=== PATIENT | female | born 1965 | race Caucasian/White ===

== ENCOUNTER → 2016-08-23 | Outpatient (CLI) | payer BC ==
[~2016-08-23] MED LIST: ASCO120P2 PO; BIOT1CAP3 PO; CA C1TAB89 PO; CHOL400T11 PO; COLE625T10 PO; IRON PO; MELO15TA12 PO; MULT-746 PO; OMEP20CA81 PO; ONDA4TAB4 PO; OXYC-544 PO; SITA100T12 PO; VITA1TAB15 PO; [UNRECOGNIZED DRUG - CODE] PO
== END ==
LOC: NEU 09:09
PROVIDERS: ATTEND Psychiatry & Neurology Neurology
DX: G56.03 Carpal tunnel syndrome, bilateral upper limbs (principal)
CPT/HCPCS: 95886; 95910